=== PATIENT | male | born 1945 | race Caucasian/White ===

== ENCOUNTER 2024-10-07 08:52 | Emergency (ER) | payer MEDICARE, BC, SELFPAY ==
[2024-10-07 08:53] VITALS: BP 172/87; PULSE 78; RESP 16; TEMP 37.1; O2SAT 98
--- NOTE | 2024-10-07 09:07 | EX.ED.UPPERE ---
HPI History of Present Illness Chief Complaint: Upper Extremity Injury Informant: patient and spouse/S.O. Narrative Narrative: [id number] male presents with spouse evaluation pain swelling left middle finger over the past week. States previously cut his fingernails short and noted to swelling. Is worsened over last few days. No fevers. No drainage. Denies history of diabetes. [facility] Medical History (Updated 10/07/24 @ 10:[address] Girsih العراقي DO) High cholesterol Hypertension Home Medications ?Medication ?Instructions ?Recorded ?Last Taken ?Type Unobtainable 10/07/24 Unknown History Allergy/AdvReac Type Severity Reaction Status Date / Time No Known Allergies Allergy Verified 10/07/24 08:53 Social History Smoking Status: Former smoker ROS ROS ED Constitutional Constitutional ED: Denies chills, fever(s) or sweats Cardiovascular Cardiovascular: Denies chest pain Respiratory/Chest Respiratory/Chest: Denies cough Gastrointestinal Gastrointestinal: Denies abdominal pain, diarrhea, nausea or vomiting Musculoskeletal Musculoskeletal: Reports extremity pain and other Details: Left middle finger pain. ; Denies back pain or neck pain Integumentary Denies rash or wounds Neurologic Neurologic: Denies headache(s), paresthesias or weakness EXAM Physical Exam Const Vital Signs: 10/07/24 08:53 Temperature 98.7 F Temperature Source Oral Pulse Rate 78 Respiratory Rate 16 Blood Pressure 172/87 H Blood Pressure Mean 115 Pulse Ox 98 Oxygen Delivery Method Room Air Positive well nourished and well developed General Appearance ED: well developed and NAD HEENT Reports moist mucous membranes normocephalic and atraumatic Eyes EOMs intact bilaterally and conjunctivae normal General Eye ED: Yes normal appearance of both eyes Neck no lymphadenopathy and supple General: Negative for tenderness Chest Wall Chest: Negative for tenderness Resp normal respiratory effort and normal air movement Effort and Inspection: symmetric chest movement; Negative for respiratory distress Cardio regular rate, regular rhythm and no murmurs Peripheral Pulses: pulses 2+ throughout GI normal to inspection, nondistended, normoactive bowel sounds and non-tender Palpation: Negative for guarding or rebound tenderness present Extremity Extremity Narrative: Left hand middle finger: Swelling base of the nail to the radial aspect. There is fluctuance. There is no streaking. There is tenderness. No active drainage. No tenderness of the volar aspect of the distal phalanx. General Extremety ED: Yes tenderness; Negative for edema General Extremity: Negative for edema Neuro oriented x3 and no sensory deficits noted Sensorium / Orientation: awake and alert Skin no rashes or lesions noted and no wounds MDM MDM MDM Narrative Medical decision making narrative: Interventions / MDM: Differential diagnosis: Paronychia Diagnosis considered but do not suspect: Felon, no pain in the volar aspect. My EKG interpretation: N/A Imaging independently reviewed and interpreted by myself: N/A External documents reviewed: N/A Test considered but not ordered:N/A ED course: Patient has concerning paronychia. No clinical felon. Procedure note: Verbal consent. Incision and drainage. Normal sterile conditions. Betadine prep of the lateral aspect of the nail. 1 cc 1% lidocaine used for local analgesia. During injection there is exudative drainage. Additional Betadine prep of the skin. 11 blade used to lift the lateral aspect of the nail, straight incision at the base of the nail continue to express an of exudative drainage. Symptoms improved. Dressing placed by myself. Wound care discussed with the patient with follow-up. No indication for antibiotics as definitive treatment is with incision and drainage. Outpatient follow-up for wound check. All questions were answered. Patient and spouse Re-evaluation: stable Disposition discussed with patient/family/significant other: Case discussed with consulting clinician: N/A This note was generated with [employer] dictation software. It may contain incorrect words, spelling, and punctuation that were not noted in checking the note before signing. Discharge Plan Triage Chief Complaint: Upper Extremity Injury ED Provider: Girish العراقي Dx/Rx/DC Orders Clinical Impression: Paronychia of left middle finger, Encounter for incision and drainage procedure Instructions: ED Paronychia of the Finger or Toe Prescriptions: No Action Unobtainable Primary Care Provider: Ladarius Wilson Referrals: Ladarius Wilson MD [Primary Care Provider] - 1 Week Activity Restrictions/Additional Instructions: Status post incision and drainage. Wound care as discussed. Use Tylenol or Motrin if needed. Follow-up with your doctor. Print Language: Spanish Disposition Disposition: Home, Self Care Discharge Date/Time: 10/07/24 10:26
[2024-10-07] MEDS: Lidocaine 1% (20 ml mdv) 20 ML Vial INFILT (09:45)
[2024-10-07 09:53] VITALS: BP 172/87; PULSE 78; RESP 16; TEMP 37.1; O2SAT 98; BMI 27.6
[2024-10-07 10:25] VITALS: BP 142/78; PULSE 78; RESP 16; TEMP 37.2; O2SAT 98
== END 2024-10-07 10:26 | disposition home or self-care (01) ==
PROVIDERS: Emergency Provider Emergency Medicine; PCP Family Medicine; Visit Provider Emergency Medicine
DX: L03.012 Cellulitis of left finger (principal); Z87.891 Personal history of nicotine dependence
CPT/HCPCS: 99284